=== PATIENT | female | born 1990 | race Caucasian/White ===

== ENCOUNTER 2016-11-03 20:52 | Observation (INO) | payer OTHER ==
[~2016-11-03] VITALS: Ht 157.5 cm; Wt 49.3 kg
[2016-11-03 21:09] LABS: BASO # 0.1 (0.0-0.2); BASO % 0.6 % (0.0-2.0); EOS # 0.1 (0.0-0.7); EOS % 0.6 % (0-4.0); GRAN # 6.5 (1.4-6.5); GRAN % 65.2 % (42.2-75.2); HEMOGLOBIN 12.7 g/dl (12.5-16.0); LYMPH # 2.9 (1.2-3.4); LYMPH % 28.7 % (20.0-51.0); MEAN CELL VOLUME 95 fl (80.0-100.0); MEAN CORPUSCULAR HEMOGLOBIN 33 pg (27.0-31.0); MEAN CORPUSCULAR HGB CONC 35 g/dl (33.0-37.0); MEAN PLATELET VOLUME 8.8 fl (7.4-10.4); MONO # 0.5 (0.1-0.6); MONO % 4.6 % (1.7-9.3); PLATELET COUNT 280 K/mm3 (130-400); RED BLOOD COUNT 3.82 M/mm3 (4.10-5.30); REDCELL DISTRIBUTION WIDTH-CV 12.8 % (11.5-14.5)
[2016-11-03 21:10] LABS: HEMATOCRIT 36.3 % (37.0-47.0)
[2016-11-03 21:20] LABS: ADJUSTED CALCIUM 8.5 mg/dL (8.4-10.2); ALBUMIN 4.3 gm/dL (3.5-5.0); BILIRUBIN,TOTAL 0.6 mg/dL (0.0-1.0); CALCIUM 8.7 mg/dL (8.4-10.2); CREATININE, serum 0.73 mg/dL (0.52-1.25); POTASSIUM 3.6 mmol/L (3.4-5.0); TOTAL PROTEIN 7.3 gm/dL (6.4-8.2)
[2016-11-03 21:33] LABS: AMPHETAMINE URINE NEGATIVE; BARBITURATES URINE NEGATIVE; BENZODIAZEPINES URINE NEGATIVE; BUPRENORPHINE URINE NEGATIVE; METHADONE URINE NEGATIVE; OPIATES URINE NEGATIVE; OXYCODONE URINE NEGATIVE; PHENCYCLIDINE URINE NEGATIVE; PROPOXYPHENE URINE NEGATIVE; THC CANNABINOIDS URINE NEGATIVE
[2016-11-03 21:36] LABS: PROLACTIN 63.3 ng/mL (3.0-18.6)
[2016-11-04] VITALS (8 sets, daily range): BP systolic 90–112; BP diastolic 35–70; PULSE 52–84; TEMP 97.2–98.8
[2016-11-04] MEDS ORDERED: ZITHROMAX 250M250 MG PO (00:55)
[2016-11-04] MEDS ORDERED: TRINESSA 281 TAB PO (00:55)
[2016-11-04] MEDS ORDERED: ATIVAN 0.50.5 MG/TAB PO (00:56)
[2016-11-04] MEDS ORDERED: Birth Control (01:34)
[2016-11-04 01:39] LABS: PROTHROMBIN TIME 11.3 SECONDS (9.7-12.8)
[2016-11-04 01:42] LABS: PARTIAL THROMBOPLASTIN TIME 27.3 SECONDS (26.0-37.0)
[2016-11-04 09:54] LABS: PH 7 (5-8); URINE APPEARANCE Clear; URINE BACTERIA None Seen /hpf; URINE BILIRUBIN Negative (NEGATIVE); URINE BLOOD Negative (NEGATIVE); URINE COLOR Straw; URINE GLUCOSE Negative (NEGATIVE); URINE KETONE Negative (NEGATIVE); URINE RBC 0-2 /hpf; URINE UROBILINOGEN Negative (NEGATIVE); URINE WBC 0-2 /hpf
[2016-11-04] MEDS ORDERED: KEPPRA 500MG500 MG PO (17:14)
== END 2016-11-04 18:40 | disposition home or self-care (01) ==
LOC: COL.ER 20:52 → MEDICAL 22:45 → COL.ER 11-04 00:45 → MEDICAL 11-04 18:40
PROVIDERS: Emergency Medicine; Nurse Practitioner Family
DX: G40.909 Epilepsy, unspecified, not intractable, without status epilepticus (principal); F41.9 Anxiety disorder, unspecified; F17.210 Nicotine dependence, cigarettes, uncomplicated; J20.9 Acute bronchitis, unspecified; F10.20 Alcohol dependence, uncomplicated; Y90.8 Blood alcohol level of 240 mg/100 ml or more; Z82.49 Family history of ischemic heart disease and other diseases of the circulatory system; Z90.49 Acquired absence of other specified parts of digestive tract
CPT/HCPCS: A9585; G0378; J2405; J3411; J7030